=== PATIENT | female | born 1965 | race Caucasian/White ===

== ENCOUNTER → 2016-12-01 | Outpatient (CLI) | payer OTHER ==
[~2016-12-01] MED LIST: THROMBIN (RECOMBINANT) 5,000 UNIT VIAL TP ONE
--- NOTE | 2016-12-01 10:37 | MA ---
Left Diagnostic Mammogram Indication: Post biopsy clip deployment. Technique: True lateral and CC views of the left breast. Comparison: Left breast ultrasound, November 10, 2016, and tomosynthesis views, July 2016. Findings: The clip is deployed at the 6 o'clock position just inferior to the nipple. No hematoma or discrete mass. Injected lidocaine obscures the soft tissue planes. Impression: Good clip deployment at the 6 o'clock position. Plan: Pending histologic results.
--- NOTE | 2016-12-01 17:34 | US ---
Ultrasound-Guided Vacuum-Assisted Core Biopsy of the Left Breast December 01, 2016 Indication: 1.2-cm hypoechoic nodule lower left breast 6 o'clock position. Crosscutting Measure #226: Current tobacco user: No. Consent: The procedure, risks, and benefits were discussed with the patient. She agreed to proceed and signed the consent form. Technique: The 1.2-cm nodule at the 6 o'clock position was localized with a preprocedure ultrasound. The skin was marked, cleaned with ChloraPrep, and sterilely draped. The skin and soft tissues were anesthetized with 1% lidocaine and bupivacaine. Through a 2-mm skin diane, a 12-gauge Suros needle w as advanced along the undersurface of the lesion. Ten vacuum-assisted core biopsy samples were obtai kristal. A visible nodule persisted at the end of the procedure. A SecurMark clip was deployed, the nee dle was removed, and pressure was applied to the biopsy site for 10 minutes. No significant bleeding or complication was incurred. Impression: Successful ultrasound-guided core biopsy of nodule lower left breast 6 o'clock position. Plan: Postbiopsy mammograms.
== END ==
LOC: FIMAGING 08:47
PROVIDERS: ATTEND Physician Assistant
PROC: 0HBU3ZX Excision of Left Breast, Percutaneous Approach, Diagnostic (ICD-10-PCS; principal; 2016-12-01)
DX: N63 Unspecified lump in breast (principal)
CPT/HCPCS: G0206

== ENCOUNTER → 2016-12-20 | Outpatient (CLI) | payer OTHER ==
[~2016-12-20] MED LIST changes: +GADOBUTROL 10 ML VIAL IVP ONE; -THROMBIN (RECOMBINANT) 5,000 UNIT VIAL TP ONE
--- NOTE | 2016-12-20 10:33 | MR ---
MRI Breasts Bilateral Without and With Contrast History: Recently diagnosed left breast cancer with ultrasound biopsy. Staging. Comparison: Ultrasound December 01, 2016, November 10, 2016, and mammography July 2016. Technique: Precontrast sagittal fat-saturated T2-weighted and Vibrant images of both breasts are obt ained. Subsequently, during intravenous administration of 5 mL Gadavist, multiphasic sagittally acqu ired Vibrant MR images through both breasts are obtained. In addition, high resolution axial images were obtained in the axial plane pre- and post contrast. Data is sent to [facility] for additional anal ysis including 3D reconstruction, computer-aided detection (CAD), and color-coded phase contrast enha ncement evaluation. Findings: There is a spiculated mass in the inferior left breast in the 6 o'clock position measuring 14 x 11 mm. There are mixed kinetics within this lesion. An adjacent small satellite nodule is seen m easuring 4 mm which is 5 mm from the spiculated mass. Mild underlying fibrocystic enhancement in the left breast. Lymph node is seen in the left axilla measuring 18 mm with thickened cortex. No suspicio us internal mammary lymph nodes. Right breast: There is mild fibrocystic enhancement in the right breast. No evidence for mass or abno rmal enhancement in the right breast to indicate contralateral breast carcinoma. No suspicious axilla ry or internal mammary lymph nodes. Impression: 1. 14 mm spiculated mass inferior left breast in 6 o'clock position corresponding with the infiltrati ng ductal carcinoma from recent ultrasound-guided biopsy. Small adjacent satellite nodule. Mildly domenica picious left axillary lymph node. 2. No evidence for contralateral breast carcinoma right breast. BI-RADS: 6
== END ==
LOC: FIMAGING 07:15
PROVIDERS: ATTEND Internal Medicine Hematology & Oncology
DX: C50.312 Malignant neoplasm of lower-inner quadrant of left female breast (principal)
CPT/HCPCS: 0159T; 77059; A9585; C8908

== ENCOUNTER 2016-12-24 06:32 | Observation (INO) | payer OTHER ==
[2016-12-24] MEDS ORDERED: LIDOCAINE 1% 5 ML SDV ONE (06:46)
[2016-12-24] MEDS ORDERED: ceFAZolin 2 GM/DEXTROSE 100 ML IV ONE (07:30)
[2016-12-24] MEDS ORDERED: BUPIVACAINE 0.25% 30 ML SDV ONE (07:59)
[2016-12-24] MEDS ORDERED: LIDOCAINE 2% 100 MG/5 ML SYR IVP ONE (09:22)
[2016-12-24] MEDS ORDERED: fentaNYL 100 MCG/2 ML INJ ONE (09:22)
[2016-12-24] MEDS ORDERED: PROPOFOL 200 MG/20 ML VIAL ONE ×2 (09:22)
[2016-12-24] MEDS ORDERED: MIDAZOLAM 2 MG/2 ML VIAL ONE (09:23)
[2016-12-24] MEDS ORDERED: clonIDINE 1 MG/10 ML VIAL EP ONE (09:25)
[2016-12-24] MEDS ORDERED: ROPIVACAINE HCL 150 MG/30 ML INJ ONE (09:25)
[2016-12-24] MEDS ORDERED: DEXAMETHASONE 4 MG/ML VIAL ONE (10:38)
[2016-12-24] MEDS ORDERED: ONDANSETRON 4 MG/2 ML VIAL ONE (10:40)
--- NOTE | 2016-12-24 10:50 | NM ---
Left Breast Lymphoscintigraphy/Hiko Node History: Right breast carcinoma. Preop for elective left mastectomy. Comparison Studies: Previous mammograms Witnessed Consent: Witnessed informed consent was obtained after the risks, benefits, and alternativ es of lymphoscintigraphy/sentinel node were explained to the patient and all questions were answered. Technique: Left breast was prepped with ChloraPrep solution. Utilizing sterile technique, a total of 343 microcuries of technetium 99m Lymphoseek was injected with single periareolar subcutaneous inject ion and a second retroareolar injection 245 microcuries of technetium 99m Lymphoseek. Patient tolerat ed the procedure well without immediate complications. Imaging: Hiko node was localized in the anterior and lateral projections. Left axillary sentinel node identified. Impression: Left breast sentinel node localization with Lymphoseek. Crosscutting Measure #226: Current tobacco user: no.
--- NOTE | 2016-12-24 11:41 | US ---
Ultrasound-guided left Breast Hookwire Needle Localization History: Left-sided breast cancer. Crosscutting Measure #226 : Current tobacco user no. Witnessed Consent: Witnessed informed consent was obtained after the risks, benefits, and alternative s of ultrasound guided left breast hookwire needle localization were explained to the patient and all questions were answered. Procedure: Utilizing sterile technique and mammographic guidance, the left breast mass was identified for hookwire needle localization. Skin was prepped with ChloraPrep solution. Lidocaine with bicarbon ate were used as local anesthesia. Via a inferolateral approach, a 5 cm hookwire needle was advanced through the mass. Confirmation of good positioning of the hook wire was obtained with ultrasound. The wire was deployed. Sterile dressing was placed. Patient tolerated the procedure well without immedia te complications. The patient underwent subsequent lymphoscintigraphy procedure. Impression: Successful ultrasound-guided hookwire needle localization of left breast mass.
--- NOTE | 2016-12-24 11:42 | MA ---
Specimen radiograph 1107 hours. History: Mass left breast. Findings: The specimen radiograph contains the needle as well as the mass and clip that were localize d earlier today. These results were called to the OR. Impression: The mass and clip are present within the specimen radiograph submitted.
[2016-12-24] MEDS ORDERED: HYDROmorphONE/DILAUDID 2 MG/ML SYR ONE (11:53)
[2016-12-24] MEDS ORDERED: HYDROmorphONE/DILAUDID 1 MG/ML SYR IVP PRN (12:56)
[2016-12-24] MEDS ORDERED: ONDANSETRON 4 MG/2 ML VIAL IVP PRN (12:56)
[2016-12-24] MEDS ORDERED: TEMAZEPAM 15 MG CAP PO PRN (12:56)
[2016-12-24] MEDS ORDERED: LR 1,000 ML IV SCH (13:00)
--- NOTE | 2016-12-24 13:07 | POSTOPPROG ---
Post Op Note Date of Operation: 12/24/16 Surgeon: Adolfo Osman (, FACS) Certified Health Education Specialist: Liz Krishnan RN-FA Anesthesiologist: Ben Barreto MD Anesthesia: LMA Pre-op Diagnosis: left breast cancer Post-op Diagnosis: same Procedure: left partial mastectomy/ALND + sentinel node mapping + oncoplastic recon Inf/Abcess present in the surg proc area at time of surgery?: No EBL: 50-100 Drains: Anoop Bauer Specimen(s): left partial mastectomy sentinel nodes x 2 (1/2 + on frozen section) one non-sentinel node level I ALND
--- NOTE | 2016-12-24 14:32 | GOP ---
[f rep st] OPERATIVE REPORT DATE OF OPERATION: 12/24/2016 SURGEON: Adolfo Osman MD, FACS [employer] ATTACHER: MARIE Mata ANESTHESIA: General by laryngeal mask, Ben Barreto MD. PREOPERATIVE DIAGNOSIS: Left breast carcinoma. POSTOPERATIVE DIAGNOSIS: Left breast carcinoma. PROCEDURE PERFORMED: 1. Left partial mastectomy with preoperative ultrasound-guided needle localization, left axillary sentinel lymph node mapping and biopsy. 2. Left axillary lymph node dissection. 3. Left breast local tissue flap reconstruction. 4. Left breast implantation of absorbable marker (BioZorb. [facility] code [id number]). FINDINGS: Two sentinel lymph nodes submitted for frozen section. One of the 2 showing evidence of metastatic malignancy. Subsequent level 1 axillary lymph node dissection submitted for permanent section. Left partial mastectomy specimen inked with a margin marker kit and submitted to imaging for specimen mammogram, confirming the tumor and previously deployed Suros clip within the specimen. Subsequently submitted to Pathology for permanent section. ESTIMATED BLOOD LOSS: 50 mL. DESCRIPTION OF PROCEDURE: After informed consent was obtained, the patient was brought to the operating room, placed under general anesthesia. She had undergone preoperative sentinel lymph node injection and lymphoscintigraphy, revealing a left axillary node as the primary point of drainage from the left breast. She also underwent ultrasound-guided needle localization of the previously biopsied tumor in the lower central left breast. Before proceeding, a time-out and identification of the patient was performed. The left breast and chest wall were prepped and draped in the usual fashion. The Neoprobe gamma detector was used to identify the sentinel node in the axilla , and the skin marked on the surface with a marking pen. The skin was infiltrated with 0.25% Marcaine plain, incised transversely, and dissection carried out through the skin and subcutaneous tissues, and superficial axillary fascia. The deep axillary tissues were dissected and 3 nodes were removed. Two of these were sentinel nodes with ex vivo counts of greater than 1000. The 3rd lymph node was a non sentinel lymph node and was set aside for permanent section. These were submitted for frozen section. One of them felt somewhat firm, though neither 1 was particularly enlarged. While we were waiting for the results of the sentinel node biopsy, a partial mastectomy was performed as follows. The patient's MRI was brought up on imaging in the operating room and studied, with the wire placed firmly through the center of the mass on ultrasound. A circumareolar incision was planned. The area was infiltrated with 0.25% Marcaine, incised between approximately the 7 o'clock and 4 o'clock position of the left areola, and dissection carried out through skin and subcutaneous tissues. The wire which entered the breast in the lower outer quadrant was directed cephalad and medially, was intercepted into the incision. The breast tissue around the shaft and tip of the wire was widely excised, and the specimen removed from the field. Hemostasis was secured with cautery and 3-0 Monocryl suture ligature. The specimen was immediately inked with a margin marker kit, and submitted for specimen mammogram , and subsequent permanent section. The cavity was reconstructed using oncoplastic techniques by freeing up adjacent tissue in 3 different orientations , cephalad, medially, and laterally. There was very little tissue inferiorly. The inframammary fold was released to allow attachment of the BioZorb device to the lower edge of the cavity. The breast tissue deep to the subareolar plane was incised with cautery approximately 1.5 to 2 cm deep to the surface, and a cantilever of tissue created extending to the supraareolar region. This was extended medially as well as laterally into the subcutaneous fatty tissues. The cavity was sized and a 2 x 3 x 1 cm low-profile BioZorb device was brought onto the field, and this was sutured to the surrounding breast tissue and the inframammary fold, bringing the cantilever of cephalad tissue over the top of the device, to provide tissue coverage. This resulted in an acceptable contour of the breast, with no significant defect noted from the surface. The remainder of the subcutaneous tissues were closed with 3-0 Monocryl suture. Subcutaneous tissues were ultimately closed with 4-0 Monocryl suture in a subcuticular fashion. Subsequently the sentinel nodes were evaluated by Pathology and 1 of the 2 nodes was positive by frozen section. We proceeded with axillary lymph node dissection as we had discussed with the patient preoperatively. The incision was extended approximately 1 cm posteriorly, and this allowed dissection of the axillary contents inferiorly from the axillary vein, preserving the thoracodorsal neurovascular bundle as well as long thoracic nerve of Pittman. There were no grossly suspicious nodes within the specimen, and as it was detached from the tail of the breast, hemostasis was secured with cautery and hemoclips. Specimen was removed from the field and submitted for permanent section. The cavity was irrigated and aspirated, and hemostasis appeared secure. A 10 mm flat Anoop-Bauer drain was brought through a separate stab wound, cut to length, and positioned into the axillary cavity. The subcutaneous tissues were closed with 3-0 Monocryl suture. Skin was closed with 4-0 Monocryl suture in a subcuticular fashion. Mastisol and Steri-Strips were applied. Needle, sponge, and instrument counts were correct. COMPLICATIONS: None. /[id number]/MODL MTDD
[2016-12-24] MEDS ORDERED: LORazepam 0.5 MG TAB PO PRN (14:59)
[2016-12-24] MEDS: HYDROCODONE/APAP 5/325 TAB PO PRN ×2 (17:42→23:10)
--- NOTE | 2016-12-24 19:07 | SOAPPROG ---
Downtime Inpatient MD Late Entry SOAP Note: post op visit Casandra is awake and alert/visiting with her family Her surgical site appears uncomplicated KOFI is sanguinous with minimal output We discussed findings at surgery and post op recovery I anticipate she will be able to discharge in the morning. William Osman MD, FACS
--- NOTE | 2016-12-24 19:07 | SOAPPROG ---
Downtime Inpatient MD Late Entry SOAP Note: Due to computer downtime, I am recreating the following medical record entry as of this date and time based on the information specified below: Information on which this medical record entry is based: (MD: Please list items, such as nursing notes, labs, imaging, etcetera)
[2016-12-24 19:55] VITALS: RESP 16
[2016-12-25 05:39] VITALS: O2SAT 95
[2016-12-25 07:26] VITALS: BP 95/51; PULSE 82; TEMP 98.6
--- NOTE | 2016-12-25 08:03 | PDDCSUM ---
Discharge Summary Discharge Summary: DOA: 12/24/16 DOD: 12/25/16 DC Dx: Left breast cancer, stage II Procedures: 12/24/16 Left partial mastectomy/ALND Course: Casandra was admitted for left partial mastectomy/sentinel lymph node mapping and biopsy. She was found to have one of two sentinel nodes positive during surgery and underwent completion ALND. She was admitted for post op pain control and observation. On the morning after surgery she was hemodynamically stable and her surgical site appeared uncomplicated. She was advanced in her diet and instructed in wound/drain care. She will follow up in my office this coming week and I will call her with pathology results when they are available DC meds: Mather 5/325 #30 Ativan 1mg #[address] Iglesias after pathology results available to discuss options for adjuvant therapy.
[2016-12-25] MEDS ORDERED: ENOXAPARIN 40 MG/0.4 ML SYR SC SCH (09:00)
== END 2016-12-25 12:00 | disposition home or self-care (01) ==
LOC: FSGY 06:32 → F1N 12:41
PROVIDERS: ADMIT Surgery; ATTEND Surgery
PROC: 0HX5XZZ Transfer Chest Skin, External Approach (ICD-10-PCS; 2016-12-24)
PROC: 0HHU01Z Insertion of Radioactive Element into Left Breast, Open Approach (ICD-10-PCS; 2016-12-24)
PROC: 0HBU0ZZ Excision of Left Breast, Open Approach (ICD-10-PCS; principal; 2016-12-24 09:47)
PROC: 07B60ZX Excision of Left Axillary Lymphatic, Open Approach, Diagnostic (ICD-10-PCS; 2016-12-24 09:47)
PROC: 3E0W3HZ Introduction of Radioactive Substance into Lymphatics, Percutaneous Approach (ICD-10-PCS; 2016-12-24 09:47)
DX: C50.512 Malignant neoplasm of lower-outer quadrant of left female breast (principal); C77.9 Secondary and unspecified malignant neoplasm of lymph node, unspecified; Z17.0 Estrogen receptor positive status [ER+]
CPT/HCPCS: 14000; 19285; 19302; 76098; 78195; A9520; C9728; G0378; J0690; J0735; J1100; J1170; J2001; J2250; J2405; J2704; J2795; J3010

== ENCOUNTER → 2017-08-05 | Outpatient (CLI) | payer OTHER | LOC: FIMAGING 09:30 | PROVIDERS: ATTEND Nurse Practitioner | DX: Z13.820 Encounter for screening for osteoporosis (principal); M81.0 Age-related osteoporosis without current pathological fracture ==

== ENCOUNTER → 2017-12-01 | Outpatient (CLI) | payer OTHER | LOC: FIMAGING 14:34 | PROVIDERS: ATTEND Internal Medicine Hematology & Oncology | DX: Z12.31 Encounter for screening mammogram for malignant neoplasm of breast (principal) ==

== ENCOUNTER 2018-01-10 17:11 | Emergency (ER) | payer OTHER ==
[2018-01-10] MEDS ORDERED: HYDROmorphONE/DILAUDID 1 MG/ML INJ IM ONE (17:21)
[2018-01-10 17:22] VITALS: PULSE 72; TEMP 97.7
--- NOTE | 2018-01-10 17:23 | EDPHY ---
H & P Time Seen by Provider: 01/10/18 17:13 HPI/ROS: CHIEF COMPLAINT: Left humerus pain HISTORY OF PRESENT ILLNESS: The patient is a 52-year-old female who was skiing and fell sideways landing on her left arm. Her arm was not outstretched. She has pain to her left humerus area. No shoulder or clavicle pain. No elbow or hand pain. Normal sensation and movement distally. She denies head neck or back pain. She denies loss of consciousness or headache. This happened about an hour ago. REVIEW OF SYSTEMS: Constitutional: denies: chills, fever, recent illness, recent injury EENTM: denies: blurred vision, double vision, nose congestion Respiratory: denies: cough, shortness of breath Cardiac: denies: chest pain, irregular heart rate, lightheadedness, palpitations Gastrointestinal/Abdominal: denies: abdominal pain, diarrhea, nausea, vomiting, blood streaked stools Genitourinary: denies: dysuria, frequency, hematuria, pain Musculoskeletal: See HPI Skin: denies: lesions, rash, jaundice, bruising Neurological: denies: headache, numbness, paresthesia, tingling, dizziness, weakness Hematologic/Lymphatic: denies: blood clots, easy bleeding, easy bruising Immunologic/allergic: denies: HIV/AIDS, transplant EXAM: GENERAL: Well-appearing, well-nourished and in no acute distress. HEAD: Atraumatic, normocephalic. EYES: Pupils equal round and reactive to light, extraocular movements intact, sclera anicteric, conjunctiva are normal. ENT: TMs normal, nares patent, oropharynx clear without exudates. Moist mucous membranes. NECK: Normal range of motion, supple without lymphadenopathy or JVD. LUNGS: Breath sounds clear to auscultation bilaterally and equal. No wheezes rales or rhonchi. HEART: Regular rate and rhythm without murmurs, rubs or gallops. ABDOMEN: Soft, nontender, normoactive bowel sounds. No guarding, no rebound. No masses appreciated. BACK: No CVA tenderness, no spinal tenderness, step-offs or deformities EXTREMITIES: No significant swelling. Pain to left proximal humerus. No obvious deformity. Normal range of motion of elbow. No tenderness to clavicle or AC joint. Normal pulses and sensation distally. NEUROLOGICAL: Cranial nerves II through XII grossly intact. Normal speech, normal gait. 5/5 strength, normal movement in all extremities, normal sensation PSYCH: Normal mood, normal affect. SKIN: Warm, dry, normal turgor, no visible rashes or lesions. Source: Patient Exam Limitations: No limitations - Medical/Surgical History Hx Asthma: No Hx Chronic Respiratory Disease: No Hx Diabetes: No Hx Cardiac Disease: No Hx Renal Disease: No Hx Cirrhosis: No Hx Alcoholism: No Hx HIV/AIDS: No Hx Splenectomy or Spleen Trauma: No - Family History Significant Family History: No pertinent family hx - Social History Smoking Status: Never smoked Alcohol Use: Sober Drug Use: None Constitutional: Initial Vital Signs Temperature (C) 36.5 C 01/10/18 17:20 Heart Rate 72 01/10/18 17:20 Respiratory Rate 18 01/10/18 17:20 Blood Pressure 128/94 H 01/10/18 17:20 O2 Sat (%) 98 01/10/18 17:20 O2 Delivery Mode Room Air Allergies/Adverse Reactions: tetracycline Allergy (Verified 11/11/16 12:14) Home Medications: Medication Instructions Recorded Hydrocodone/APAP 5/325 [[place] 1 - 2 each PO Q4 PRN #14 tab 01/10/18 5/325] Tamoxifen Citrate 01/10/18 Medical Decision Making - Diagnostics Imaging Results: Imaging Impressions Humerus X-Ray 01/10/18 17:21 Impression: Nondisplaced fracture of the proximal humerus. Imaging: Discussed imaging studies w/ practice managers Radiologist Procedures: Procedure: Splint placement. A left arm sling was applied. After application of the splint I returned and re -examined the patient. The splint was adequately immobilizing the joint and distal to the splint the patient's circulation and sensation was intact. ED Course/Re-evaluation: 6:15 p.m. we discussed the x-ray results as well as follow up with Orthopedics. The patient was placed in a sling. She states Vicodin has worked well for her in the past. 6:30 p.m. I spoke with Dr. Gomez who reviewed the images and will follow up in the patient in his office. Differential Diagnosis: Partial list of the Differential diagnosis considered include but were not limited to; proximal humerus fracture, AC separation and although unlikely based on the history and physical exam, I also considered dislocation, vascular injury, nerve injury, eye injury, neck injury. I discussed these differential diagnoses and the plan with the patient as well as the usual and expected course. The patient understands that the diagnosis is provisional and that in medicine we are not always correct and that further workup is often warranted. Usual and customary warnings were given. All of the patient's questions were answered. The patient was instructed to return to the emergency department should the symptoms at all worsen or return, otherwise to followup with the physician as we discussed. - Data Points Medications Given: Discontinued Medications Hydrocodone Bitart/Acetaminophen ([place] 5/325mg Prepack#6) 1 btl TAKEHOME EDNOW ONE Stop: 01/10/18 18:21 Last Admin: 01/10/18 18:32 Dose: 1 btl Hydromorphone HCl (Dilaudid) 1 mg IM EDNOW ONE Stop: 01/10/18 17:22 Last Admin: 01/10/18 17:32 Dose: 1 mg Departure - Departure Disposition: Home, Routine, Self-Care Clinical Impression: Fracture of proximal end of left humerus Qualifiers: Encounter type: initial encounter Fracture type: closed Fracture morphology: unspecified fracture morphology Qualified Code(s): S42.202A - Unspecified fracture of upper end of left humerus, initial encounter for closed fracture Condition: Good Instructions: Hydrocodone/Acetaminophen (By mouth), Proximal Humerus Fracture ( ED) Referrals: PAULO HERNANDEZ [Primary Care Provider] - As per Instructions Jim Gomez MD [Medical Doctor] - 2-3 days, call for appt. Prescriptions: Hydrocodone/APAP 5/325 [[place] 5/325] 1 - 2 each PO Q4 PRN #14 tab PRN Reason: Pain, Mild
[2018-01-10] MEDS ORDERED: HYDROCOD/APAP 5/325 PREPACK#6 BTL TAKEHOME ONE (18:20)
[2018-01-10 18:48] VITALS: BP 108/79; RESP 16; O2SAT 93
== END 2018-01-10 18:48 | disposition home or self-care (01) ==
LOC: EDUNIT#
DX: S42.202A Unspecified fracture of upper end of left humerus, initial encounter for closed fracture (principal); V00.321A Fall from snow-skis, initial encounter; Y93.23 Activity, snow (alpine) (downhill) skiing, snowboarding, sledding, tobogganing and snow tubing
CPT/HCPCS: J1170

== ENCOUNTER → 2018-12-04 | Outpatient (CLI) | payer OTHER | LOC: FIMAGING 08:59 | PROVIDERS: ATTEND Internal Medicine Hematology & Oncology | DX: Z12.31 Encounter for screening mammogram for malignant neoplasm of breast (principal); Z85.3 Personal history of malignant neoplasm of breast ==